=== PATIENT | male | born 1955 | race African-American/Black ===

== ENCOUNTER 2019-10-03 08:51 | Emergency (ER) | payer OTHER ==
[2019-10-03] MEDS ORDERED: METOCLOPRAMIDE 10 MG/2mL INJ ONE (10:06)
[2019-10-03] MEDS ORDERED: DIPHENHYDRAMINE 50 MG/ML VIAL ONE (10:07)
--- NOTE | 2019-10-03 10:12 | RAD REPORT ---
EXAM DESCRIPTION: CT - Head Brain Wo Cont - 10/03/2019 9:58 am CLINICAL HISTORY: Headache COMPARISON: October 2012 TECHNIQUE: Axial 5 mm thick images of the head were obtained without IV contrast. All CT scans are performed using dose optimization technique as appropriate and may include automated exposure control or mA/KV adjustment according to patient size. FINDINGS: No intracranial hemorrhage, mass, edema or shift of mid-line structures. No acute infarcti on changes seen. No abnormal extra-axial fluid collections. Ventricles are normal. Mastoid air cells and visualized portions of the paranasal sinuses are clear. No acute bony findings. IMPRESSION: Negative non-contrast CT head examination.
--- NOTE | 2019-10-03 11:09 | ER ---
Nurse's Notes [facility] [place] Name: Manny Parsons Sr Age: 63 yrs Sex: Male : 1955 Arrival Date: 10/03/2019 Time: 08:53 Bed 15 Private MD: Deonte Beatty Diagnosis: Migraine Presentation: 10/03 09:16 Presenting complaint: Patient states: headache that began when patient woke up at 0700 ss this morning with nausea. Pt states, "I think the headache is from the nausea I have. If I could just throw up, I think I would feel better,". Transition of care: patient was not received from another setting of care. Onset of symptoms was October 03, 2019. Risk Assessment: Do you want to hurt yourself or someone else? Patient reports no desire to harm self or others. Initial Sepsis Screen: Does the patient meet any 2 criteria? No. Patient's initial sepsis screen is negative. Does the patient have a suspected source of infection? No. Patient's initial sepsis screen is negative. Care prior to arrival: None. 09:16 Method Of Arrival: Ambulatory ss 09:16 Acuity: IRMA 3 ss Triage Assessment: 09:50 General: Appears uncomfortable. vc 09:50 Headache History: Other Pt. states he rarely gets headaches. General: Appears vc uncomfortable, Behavior is calm, cooperative. Pain: Complains of pain in top of head, forehead, right latter day and left latter day Pain level that patient reports is acceptable is 3 out of 10 on a pain scale. Quality of pain is described as aching, dull, Alleviated by rest, relaxation, Pain decreased when patient laid down and turned the lights off. Also complains of nausea. Neuro: Level of Consciousness is awake, alert, obeys commands, Oriented to person, place, time, Moves all extremities. Gait is steady. Cardiovascular: Reports nausea. Respiratory: Airway is patent Respiratory effort is even, unlabored. GI: Reports nausea. 09:50 Pain: Pain began gradually, 3 hours ago. vc Historical: - Allergies: 09:17 No Known Allergies; ss - Home Meds: 09:17 None [Active]; ss - PMHx: 09:17 None; ss - PSHx: 09:17 None; ss - Immunization history:: Adult Immunizations up to date. - Social history:: Smoking status: Patient/guardian denies using tobacco. - Ebola Screening: : Patient denies exposure to infectious person Patient denies travel to an Ebola-affected area in the 21 days before illness onset. Screenin:50 Abuse screen: Denies threats or abuse. Nutritional screening: Nausea. vc 09:50 Tuberculosis screening: No symptoms or risk factors identified. Fall Risk IV access (20 vc points). Assessment: 09:50 General: Appears uncomfortable. Pain: Complains of pain in top of head and forehead vc Pain does not radiate. Pain level that patient reports is acceptable is 3 out of 10 on a pain scale. Pain began 3 hours ago. Is continuous, Alleviated by rest, relaxation, Aggravated by lights. Neuro: Level of Consciousness is awake, alert, obeys commands, Oriented to person, place, time, Registered Medical Transcriptionist are equal bilaterally Speech is normal. Cardiovascular: Denies vomiting. Respiratory: Airway is patent Respiratory effort is even, unlabored. GI: Reports nausea. Derm: Skin is intact, is healthy with good turgor. Musculoskeletal: No deficits noted. Vital Signs: 09:17 BP 117 / 69; Pulse 62; Resp 17; Temp 98.5(TE); Pulse Ox 97% on R/A; Weight 88 kg; Height 5 ft. 10 in. (177.80 cm); Pain 5/10; 09:46 BP 121 / 70; Pulse 62; Resp 18; Temp 98.2; Pulse Ox 100% ; Pain 3/10; vc 10:46 BP 121 / 72; Pulse 74; Resp 20; Temp 98.4; Pulse Ox 100% ; Pain 1/10; vc 09:17 Body Mass Index 27.84 (88.00 kg, 177.80 cm) ED Course: 08:53 Patient arrived in ED. ag5 08:53 Deonte Beatty MD is Private Physician. ag5 09:17 Triage completed. ss 09:17 Arm band placed on left wrist. ss 09:34 Matty Velazquez PA is PHCP. jr8 09:34 Abiel Osborn MD is Attending Physician. jr8 09:45 Patient has correct armband on for positive identification. Bed in low position. Call vc light in reach. Pulse ox on. NIBP on. Door closed. Lights dimmed. 09:51 Shannan Ghotra, FLAQUITO is Primary Nurse. vc 09:57 CT Head Brain wo Cont In Process Unspecified. EDMS 10:20 Inserted saline lock: 20 gauge in left antecubital area, using aseptic technique. vc 11:08 Deonte Beatty MD is Referral Physician. jr8 11:30 No provider procedures requiring assistance completed. IV discontinued, intact, vc bleeding controlled, No redness/swelling at site. Pressure dressing applied. Administered Medications: 10:25 Drug: Reglan 10 mg Route: IVP; Infused Over: 2 mins; Site: left antecubital; vc 10:25 Drug: Benadryl 25 mg Route: IVP; Site: left antecubital; vc Outcome: 11:08 Discharge ordered by . jr8 11:30 Discharged to home ambulatory. vc 11:30 Condition: improved 11:30 Discharge instructions given to patient, Instructed on follow up and referral plans. 12:08 Patient left the ED. jr8 Signatures: Dispatcher [employer] EDMS Oliva Foss RN RN ss Roszak, Josh, PA PA jr8 Jeffry Jaramillo ag5 Shannan Ghotra RN RN vc Corrections: (The following items were deleted from the chart) 11:03 10:59 Pain: Pain began vc vc 11: 11:15 General: Appears uncomfortable, vc vc 11:20 11:15 Pain: Complains of pain in top of head and forehead Pain does not radiate. Pain vc level that patient reports is acceptable is 3 out of 10 on a pain scale. Pain began 3 hours ago. Is continuous, Alleviated by rest, relaxation, Aggravated by lights vc 11: 11:15 Neuro: Level of Consciousness is awake, alert, obeys commands, Oriented to vc person, place, time, Registered Medical Transcriptionist are equal bilaterally Speech is normal, vc 11: 11:15 Respiratory: Airway is patent Respiratory effort is even, unlabored, vc vc 11: 11:15 GI: Reports nausea, vc vc 11: 11:15 Derm: Skin is intact, is healthy with good turgor, vc vc : 11:15 Musculoskeletal: No deficits noted. vc vc 11: 11:15 Cardiovascular: Denies vomiting, vc vc
--- NOTE | 2019-10-03 11:10 | EDPHYS ---
Physician Documentation [facility] Name: Manny Parsons Sr Age: 63 yrs Sex: Male : 1955 Arrival Date: 10/03/2019 Time: 08:53 Bed 15 Private MD: Deonte Beatty ED Physician Abiel Osborn HPI: 10/03 10:57 This 63 yrs old Black Male presents to ER via Ambulatory with complaints of Headache, jr8 Nausea. 10:57 The patient complains of pain to the forehead. The patient describes the headache as a jr8 pressure. Onset: The symptoms/episode began/occurred acutely, today. Associated signs and symptoms: Pertinent positives: nausea. Severity of symptoms: At its worst the pain was moderate, in the emergency department the pain is unchanged. The symptoms are alleviated by nothing. the symptoms are aggravated by nothing. The patient has not experienced similar symptoms in the past. The patient has not recently seen a physician. Historical: - Allergies: 09:17 No Known Allergies; ss - Home Meds: 09:17 None [Active]; ss - PMHx: 09:17 None; ss - PSHx: 09:17 None; ss - Immunization history:: Adult Immunizations up to date. - Social history:: Smoking status: Patient/guardian denies using tobacco. - Ebola Screening: : Patient denies exposure to infectious person Patient denies travel to an Ebola-affected area in the 21 days before illness onset. ROS: 10:57 Eyes: Negative for injury, pain, redness, and discharge, ENT: Negative for injury, jr8 pain, and discharge, Neck: Negative for injury, pain, and swelling, Cardiovascular: Negative for chest pain, palpitations, and edema, Respiratory: Negative for shortness of breath, cough, wheezing, and pleuritic chest pain, Back: Negative for injury and pain, MS/Extremity: Negative for injury and deformity, Skin: Negative for injury, rash, and discoloration. 10:57 Abdomen/GI: Positive for nausea, Negative for abdominal pain, vomiting, diarrhea. 10:57 Neuro: Positive for headache. Exam: 10:57 Eyes: Pupils equal round and reactive to light, extra-ocular motions intact. Lids and jr8 lashes normal. Conjunctiva and sclera are non-icteric and not injected. Cornea within normal limits. Periorbital areas with no swelling, redness, or edema. ENT: Nares patent. No nasal discharge, no septal abnormalities noted. Tympanic membranes are normal and external auditory canals are clear. Oropharynx with no redness, swelling, or masses, exudates, or evidence of obstruction, uvula midline. Mucous membranes moist. Neck: Trachea midline, no thyromegaly or masses palpated, and no cervical lymphadenopathy. Supple, full range of motion without nuchal rigidity, or vertebral point tenderness. No Meningismus. Cardiovascular: Regular rate and rhythm with a normal S1 and S2. No gallops, murmurs, or rubs. Normal PMI, no JVD. No pulse deficits. Respiratory: Lungs have equal breath sounds bilaterally, clear to auscultation and percussion. No rales, rhonchi or wheezes noted. No increased work of breathing, no retractions or nasal flaring. Abdomen/GI: Soft, non-tender, with normal bowel sounds. No distension or tympany. No guarding or rebound. No evidence of tenderness throughout. Back: No spinal tenderness. No costovertebral tenderness. Full range of motion. Skin: Warm, dry with normal turgor. Normal color with no rashes, no lesions, and no evidence of cellulitis. MS/ Extremity: Pulses equal, no cyanosis. Neurovascular intact. Full, normal range of motion. Neuro: Awake and alert, GCS 15, oriented to person, place, time, and situation. Cranial nerves II-XII grossly intact. Motor strength 5/5 in all extremities. Sensory grossly intact. Cerebellar exam normal. Normal gait. Vital Signs: 09:17 BP 117 / 69; Pulse 62; Resp 17; Temp 98.5(TE); Pulse Ox 97% on R/A; Weight 88 kg; ss Height 5 ft. 10 in. (177.80 cm); Pain 5/10; 09:46 BP 121 / 70; Pulse 62; Resp 18; Temp 98.2; Pulse Ox 100% ; Pain 3/10; vc 10:46 BP 121 / 72; Pulse 74; Resp 20; Temp 98.4; Pulse Ox 100% ; Pain 1/10; vc 09:17 Body Mass Index 27.84 (88.00 kg, 177.80 cm) MDM: 09:35 Patient medically screened. 8 10:57 Data reviewed: vital signs, nurses notes, radiologic studies, CT scan. Data jr8 interpreted: Pulse oximetry: on room air is 97 %. Interpretation: normal. Counseling: I had a detailed discussion with the patient and/or guardian regarding: the historical points, exam findings, and any diagnostic results supporting the discharge/admit diagnosis, radiology results, the need for outpatient follow up, a family practitioner, to return to the emergency department if symptoms worsen or persist or if there are any questions or concerns that arise at home. 10/03 09:47 Order name: CT Head Brain wo Cont; Complete Time: 10:47 jr8 10/03 09:47 Order name: IV; Complete Time: 49 jr8 Administered Medications: 10:25 Drug: Reglan 10 mg Route: IVP; Infused Over: 2 mins; Site: left antecubital; vc 10:25 Drug: Benadryl 25 mg Route: IVP; Site: left antecubital; vc Disposition: 18:18 Co-signature as Attending Physician, Abiel Osbonr MD Did not see or evaluate patient. ps1 Signing chart for administrative purposes. Not an endorsement of care provided. . Disposition: 10/03/19 11:08 Discharged to Home. Impression: Migraine. - Condition is Stable. - Discharge Instructions: Migraine Headache. - Medication Reconciliation Form, Thank You Letter, Antibiotic Education, Prescription Opioid Use form. - Follow up: Deonte Beatty MD; When: 2 - 3 days; Reason: Recheck today's complaints, Continuance of care, Re-evaluation by your physician. - Problem is new. - Symptoms have improved. Signatures: [facility]patcher [facility] Oliva Foss RN RN Matty Neville PA PA jr8 Abiel Osborn MD MD ps1 Shannan Ghotra RN RN vc Corrections: (The following items were deleted from the chart) 12:08 11:08 10/03/2019 11:08 Discharged to Home. Impression: Migraine. Condition is Stable. jr8 Forms are Medication Reconciliation Form, Thank You Letter, Antibiotic Education, Prescription Opioid Use. Follow up: Deonte Beatty; When: 2 - 3 days; Reason: Recheck today's complaints, Continuance of care, Re-evaluation by your physician. Problem is new. Symptoms have improved. jr8
[2019-10-03 12:15] VITALS: O2SAT 100
[2019-10-03 12:16] VITALS: BP 121/72; TEMP 98.4
== END 2019-10-03 12:08 | disposition home or self-care (01) ==
LOC: ER 08:51
DX: G43.909 Migraine, unspecified, not intractable, without status migrainosus (principal)
CPT/HCPCS: 70450; 96375; 96374; 99284; J2765; J1200